=== PATIENT | female | born 1965 | race Caucasian/White ===

== ENCOUNTER 2021-05-31 11:50 | Observation (INO) | payer OTHER ==
[~2021-05-31] VITALS: Ht 165.1 cm; Wt 74.8 kg
[~2021-05-31 11:50] MED LIST: VITAMIN D21250 MCG PO
[2021-05-31 12:56] LABS: HEMOGLOBIN 14.8 gm/dl (12.3-15.3); RED BLOOD COUNT 4.72 M/UL (4.00-5.10); WHITE BLOOD COUNT 5.7 K/UL (4.5-11.0)
[2021-05-31 13:29] LABS: BUN/CREATININE RATIO 17 (0-10)
[2021-05-31] MEDS ORDERED: IBUPROFEN800 MG PO (17:01)
[2021-05-31] MEDS ORDERED: DIALYVITE VIT125 MCG PO (17:02)
[2021-05-31] MEDS ORDERED: ESTRADIOL1 MG PO (17:04)
[2021-05-31] MEDS ORDERED: PROGESTERONE100 MG PO (17:05)
[2021-05-31] MEDS ORDERED: OMEPRAZOLE40 MG PO (17:09)
[2021-05-31] MEDS ORDERED: MELOXICAM15 MG PO (17:09)
[2021-05-31] MEDS ORDERED: HYDROCODON-ACE1 EAC2 PO (17:10)
[2021-05-31] MEDS ORDERED: FUROSEMIDE40 MG PO (17:13)
[2021-05-31] MEDS ORDERED: MONTELUKAST SOD10 MG PO (17:14)
[2021-05-31] MEDS ORDERED: POTASSIUM CHLO10 ME1 PO (17:16)
[2021-05-31] MEDS ORDERED: ALBUTEROL2.5 MG/3 M INH (17:17)
[2021-05-31] MEDS ORDERED: PROAIR HFA8.5 GM INH (17:18)
[2021-05-31] MEDS ORDERED: FLONASE 0.05% N16 GM (17:19)
[2021-05-31] MEDS ORDERED: NARCAN4 MG (17:21)
[2021-05-31] MEDS ORDERED: TOPIRAMATE25 MG PO (17:21)
[2021-05-31] MEDS ORDERED: ONE-A-DAY WOME1 EAC5 PO (17:22)
[2021-06-01 01:09] LABS: HEMOGLOBIN 13.8 gm/dl (12.3-15.3); RED BLOOD COUNT 4.39 M/UL (4.00-5.10); WHITE BLOOD COUNT 6.4 K/UL (4.5-11.0)
[2021-06-01 01:42] LABS: BUN/CREATININE RATIO 15 (0-10)
== END 2021-06-01 19:06 | disposition home or self-care (01) ==
LOC: ER1 11:50 → CDU 14:37 → M/S 16:38
PROVIDERS: Physician Assistant; ADMIT Internal Medicine
DX: R07.89 Other chest pain (principal); E87.6 Hypokalemia; K21.9 Gastro-esophageal reflux disease without esophagitis; Z20.822 Contact with and (suspected) exposure to COVID-19; Z88.8 Allergy status to other drugs, medicaments and biological substances; Z79.890 Hormone replacement therapy; Z79.899 Other long term (current) drug therapy
CPT/HCPCS: ECHO; 71045; 78452; 80048; 80053; 80061; 82550; 82553; 83735; 84439; 84443; 84484; 85025; 93005; 93306; 99285; A9502; G0378; U0002